=== PATIENT | female | born 1955 | race Caucasian/White ===

== ENCOUNTER → 2017-10-10 10:48 | Outpatient (CLI) | payer BC, SELFPAY ==
--- NOTE | 2017-10-10 10:53 | MM_ITS ---
MM Dig screening mamm BI w/CAD CAD Screening ORDERING PHYSICIAN : Feliz Carlisle MD PATIENT AGE: 62 years GENDER: Female COMPARISON: Previous mammogramsJanuary 2016, 2015, January 2015 and July 2014 right mammogram. June 2013. Also 2011 INDICATION: Routine screening. No hormones no new complaints noncontributory family history TECHNIQUE: Standard CC and MLO images were obtained. R2 CAD reviewed. FINDINGS: Moderate density breast with fibroglandular elements most evident towards the upper outer quadrant. Mild asymmetry pattern is similar to previous studies RIGHT BREAST : No new areas of significant concern. Small just over 5 mm x nodular densities again seen at the medial right breast similar to 2016 2015 studies and actually dates back to 2014. Only one or 2 mm larger since 2015-this relative stability supports benign entity and follow-up in one year adequate LEFT BREAST:. Stable architecture and appearance with no new findings. Follow-up in one year recommended IMPRESSION: No significant new findings. Region towards upper-outer quadrant of both right left breast are denser and slightly more nodular character but with no suspicious new findings. Fairly stable small areas of nodularity bilaterally.- For which Follow-up in not over one year would be recommended, emphasized and encouraged BI-RADS Category: 2 Benign Finding(s) RECOMMENDED FOLLOW-UP: 1YR - 1 YEAR FOLLOW-UP (A letter has been sent to the patient regarding results of the study.)
== END ==
PROVIDERS: Family Provider Family Medicine; PCP Family Medicine; Visit Provider Family Medicine
DX: Z12.31 Encounter for screening mammogram for malignant neoplasm of breast (principal)
CPT/HCPCS: 77067

== ENCOUNTER → 2018-01-17 12:49 | Outpatient (POV) | payer BC, SELFPAY | PROVIDERS: Family Provider Family Medicine; PCP Family Medicine | DX: Z00.00 Encounter for general adult medical examination without abnormal findings (principal) ==

== ENCOUNTER → 2018-02-07 15:00 | Outpatient (POV) | payer BC, SELFPAY | PROVIDERS: Family Provider Family Medicine; PCP Family Medicine | DX: Z00.00 Encounter for general adult medical examination without abnormal findings (principal) ==

== ENCOUNTER → 2018-10-12 13:34 | Outpatient (CLI) | payer MEDICARE, SELFPAY ==
--- NOTE | 2018-10-12 13:38 | MM_ITS ---
MM Dig screening mamm BI w/CAD CAD Screening COMPARISON: Digital mammograms with CAD 10/10/2017 and 08/15/2016 INDICATION: There is no personal or family history of breast cancer TECHNIQUE: Standard CC and MLO images were obtained. R2 CAD reviewed. FINDINGS: Scattered fibroglandular densities are seen in both breast primarily upper outer quadrants. There is minimal arterial calcification in each breast. There are couple of benign-appearing calcifications in each breast. There is no suspicious lesion and there are no suspicious microcalcifications. IMPRESSION: Fibrofatty parenchyma with no suspicious lesion seen BI-RADS Category: 2 Benign Finding(s) RECOMMENDED FOLLOW-UP: 1YR - 1 YEAR FOLLOW-UP (A letter has been sent to the patient regarding results of the study.)
== END ==
PROVIDERS: PCP Family Medicine; Referring Provider Family Medicine; Visit Provider Family Medicine
DX: Z12.31 Encounter for screening mammogram for malignant neoplasm of breast (principal)
CPT/HCPCS: 77067

== ENCOUNTER → 2019-07-29 08:15 | Outpatient (CLI) | payer MEDICARE, SELFPAY ==
--- NOTE | 2019-07-29 08:28 | US_ITS ---
PROCEDURE: US ABDOMEN LIMITED CLINICAL INDICATION: epigastic abdominal pain with nausea COMPARISON: No exams were available for comparison FINDINGS: PANCREAS: Unremarkable. No obvious mass or abnormal fluid collection. No ductal dilatation LIVER: No focal liver lesions demonstrated. Homogeneous echogenicity. No intrahepatic biliary ductal dilatation evident. There is appropriate direction of blood flow within a non dilated portal vein RIGHT KIDNEY: Unremarkable. Normal size and echogenicity. No hydronephrosis GALLBLADDER: No gallstones, gallbladder wall thickening, pericholecystic fluid, or biliary dilatation. IMPRESSION: Unremarkable limited abdominal ultrasound as detailed above disc Dictated by: Armani Joe MD 07/29/2019 15:19 Electronically signed by Armani Joe MD in [place] 07/29/2019 15:19
== END ==
PROVIDERS: PCP Family Medicine; Visit Provider Family Medicine
DX: R10.13 Epigastric pain (principal); R11.2 Nausea with vomiting, unspecified
CPT/HCPCS: 76705

== ENCOUNTER → 2019-08-02 08:15 | Outpatient (CLI) | payer MEDICARE, SELFPAY ==
--- NOTE | 2019-08-02 08:27 | CT_ITS ---
PROCEDURE: CT ABDOMEN PELVIS W CON CLINICAL INDICATION: EPIGASTRIC PAIN,CONSTIPATION,N/V Nausea, vomiting, abdominal discomfort with epigastric pain COMPARISON: US ABDOMEN LIMITED from 07/29/2019 TECHNIQUE: IV Contrast: 75ML OPTIRAY 350 Oral Contrast 450ml Redicat Axial images obtained with sagittal and coronal reformats. All CT scans at the facility use one or more dose reduction, viz: automated exposure control, ma/kV adjustment per patient size (including targeted exams where dose is matched to indication, i.e. head), or iterative reconstruction technique. FINDINGS: LOWER THORAX: No acute finding ABDOMEN & PELVIS: The liver, spleen, pancreas, adrenal glands, and kidneys show no acute finding. No intestinal obstruction or free air. No evidence of appendicitis or diverticulitis. No pelvic mass, abnormal fluid collection, or focal inflammatory change of the pelvis. No acute bony anomalies. There is a small umbilical hernia which contains fat. IMPRESSION: No acute abdominal or pelvic findings. Dictated by: Armani Joe MD 08/04/2019 08:27 Electronically signed by Armani Joe MD in [facility] 08/04/2019 08:28
== END ==
PROVIDERS: PCP Family Medicine; Visit Provider Family Medicine
DX: R10.13 Epigastric pain (principal); R11.2 Nausea with vomiting, unspecified; R74.8 Abnormal levels of other serum enzymes; K59.00 Constipation, unspecified
CPT/HCPCS: 74177; Q9967

== ENCOUNTER → 2020-02-18 11:13 | Outpatient (CLI) | payer MEDICARE, SELFPAY ==
--- NOTE | 2020-02-18 11:21 | XR_ITS ---
PROCEDURE: XR SACRUM COCCYX MIN 2V CLINICAL INDICATION: COCCYDYNIA Pain COMPARISON: CT ABDOMEN PELVIS W CON from 08/02/2019 FINDINGS: There is an angulation deformity at the sacrococcygeal junction with mild anterior angulation of the coccyx consistent with an old fracture. No bony destructive process evident. . IMPRESSION: Old fracture at the sacrococcygeal junction, no acute finding Dictated by: Armani Joe MD 02/19/2020 07:26 Electronically signed by Armani Joe MD in [facility] 02/19/2020 07:26
== END ==
PROVIDERS: PCP Family Medicine; Visit Provider Family Medicine
DX: M53.3 Sacrococcygeal disorders, not elsewhere classified (principal)
CPT/HCPCS: 72220

== ENCOUNTER → 2020-02-21 10:16 | Outpatient (CLI) | payer MEDICARE, SELFPAY ==
--- NOTE | 2020-02-21 10:18 | MM_ITS ---
PROCEDURE: MM DIG SCREENING MAMM BI W/CAD Digital Breast Tomosynthesis Included CLINICAL INDICATION: SCREENING There is no personal or family history of breast cancer. COMPARISON: MG [facility] DIG MAMM-SCREEN OLIVIA W/CAD from 08/15/2016 [facility] MM Dig screening mamm BI w/CAD from 10/10/2017 [facility] MM Dig screening mamm BI w/CAD from 10/12/2018 TECHNIQUE: Standard CC and MLO images and 3D Tomosynthesis was obtained. R2 CAD reviewed. FINDINGS: Scattered fibroglandular densities are seen in each breast. There are couple of benign-appearing calcifications left breast and a single benign-appearing calcification right breast. There is faint arterial calcification in each breast. There is no new or suspicious lesion in either breast and no suspicious microcalcifications. IMPRESSION: Fibrofatty parenchyma with no suspicious lesions seen BI-RAD Category: 2 Benign Finding(s) FOLLOW-UP: 1YR 1 Year Follow-up (A letter has been sent to the patient regarding results of the study.) Dictated Dr. Everett Scott MD 02/28/2020 09:42 Dr. Everett Torres MD in [place] 02/28/2020 09:42
== END ==
PROVIDERS: PCP Family Medicine; Visit Provider Family Medicine
DX: Z12.31 Encounter for screening mammogram for malignant neoplasm of breast (principal)
CPT/HCPCS: 77063; 77067

== ENCOUNTER → 2020-12-08 09:43 | Outpatient (POV) | payer MEDICARE, SELFPAY | PROVIDERS: Visit Provider Dermatology | DX: Z00.00 Encounter for general adult medical examination without abnormal findings (principal) ==

== ENCOUNTER → 2020-12-09 13:43 | Outpatient (CLI) | payer MEDICARE, SELFPAY | PROVIDERS: Visit Provider Nurse Practitioner | DX: T78.1XXA Other adverse food reactions, not elsewhere classified, initial encounter (principal) ==

== ENCOUNTER → 2020-12-10 11:11 | Outpatient (CLI) | payer MEDICARE, SELFPAY ==
[2020-12-15 04:15] LABS: F024-IgE Shrimp <0.10 kU/L (Class 0)
== END ==
PROVIDERS: Visit Provider Nurse Practitioner
DX: Z91.018 Allergy to other foods (principal)
CPT/HCPCS: 36415; 86003

== ENCOUNTER → 2021-03-10 10:53 | Outpatient (CLI) | payer MEDICARE, SELFPAY ==
--- NOTE | 2021-03-10 10:56 | MM_ITS ---
PROCEDURE: MM DIG SCREENING MAMM BI W/CAD Digital Breast Tomosynthesis Included CLINICAL INDICATION: SCREENING COMPARISON: [facility] MM Dig screening mamm BI w/CAD from 10/10/2017 [facility] MM Dig screening mamm BI w/CAD from 10/12/2018 MG MM DIG SCREENING MAMM BI W/CAD from 02/21/2020 TECHNIQUE: Standard CC and MLO images and 3D Tomosynthesis was obtained. R2 CAD reviewed. FINDINGS: There is average fibroglandular tissue. There are scattered benign-appearing calcifications. No suspicious appearing mass, malignant-appearing microcalcification, architectural distortion, or skin thickening. No significant change IMPRESSION: Benign findings. No change with no evidence of malignancy BI-RAD Category: 2 Benign Finding FOLLOW-UP: 1 YR 1 Year Follow-up (A letter has been sent to the patient regarding results of the study.) Dictated by: Armani Joe MD 03/16/2021 09:07 Armani Joe MD in [place] 03/16/2021 09:07
== END ==
PROVIDERS: PCP Family Medicine; Visit Provider Family Medicine
DX: Z12.31 Encounter for screening mammogram for malignant neoplasm of breast (principal)
CPT/HCPCS: 77063; 77067

== ENCOUNTER → 2021-06-28 08:43 | Outpatient (CLI) | payer MEDICARE, SELFPAY ==
--- NOTE | 2021-06-28 08:45 | XR_ITS ---
PROCEDURE: XR DEXA AXIAL SKELETON CLINICAL HISTORY: POST-MENOPAUSAL COMPARISON: No exams were available for comparison FINDINGS: The right hip BMD is 0.665 with a T-score of -1.7. The left hip BMD is 0.69 with a T-score of -1.4. The lumbar spine BMD is 0.965 with a T-score of -0.7. IMPRESSION: This patient is considered osteopenic according to the World Health Organization criteria. Bone density is between 10 and 25 percent below young normal. Fracture risk is moderate. Treatment is advised. Based on these results a follow-up exam is recommended in 2 year. Dictated by: Armani Joe MD 06/28/2021 14:14 Armani Joe MD in [place] 06/28/2021 14:14
== END ==
PROVIDERS: PCP Family Medicine; Visit Provider Family Medicine
DX: Z13.820 Encounter for screening for osteoporosis (principal); Z78.0 Asymptomatic menopausal state
CPT/HCPCS: 77080

== ENCOUNTER → 2021-12-28 13:16 | Outpatient (POV) | payer MEDICARE, SELFPAY | PROVIDERS: Visit Provider Dermatology | DX: Z00.00 Encounter for general adult medical examination without abnormal findings (principal) ==

== ENCOUNTER → 2022-03-08 08:01 | Outpatient (POV) | payer MEDICARE, SELFPAY | PROVIDERS: Visit Provider Dermatology | DX: Z00.00 Encounter for general adult medical examination without abnormal findings (principal) ==

== ENCOUNTER → 2022-04-08 10:07 | Outpatient (CLI) | payer MEDICARE, SELFPAY ==
--- NOTE | 2022-04-08 10:11 | MM_ITS ---
PROCEDURE INFORMATION: Exam: MG Bilateral Screening 3D Mammography Exam date and time: 04/08/2022 10:22 AM Age: 67 years old Clinical indication: Screening examination. No family history of breast cancer. TECHNIQUE: Imaging protocol: Bilateral Screening tomosynthesis and 2D mammography including computer-aided detection (CAD) when performed. COMPARISON: 1. MG MM DIG SCREENING MAMM BI W/CAD 03/10/2021 11:01 AM 2. MG MM DIG SCREENING MAMM BI W/CAD 02/21/2020 10:26 AM 3. [facility] MM Dig screening mamm BI w/CAD 10/12/2018 2:06 PM 4. MG [facility] MM Dig screening mamm BI w/CAD 10/10/2017 11:06 AM FINDINGS: MAMMOGRAPHY: Breast composition: There are scattered areas of fibroglandular density. Mass: Possible two 0.5 cm oval nodules in the right breast 12 o'clock middle 3rd, 6-7 cm from the nipple. Architectural distortion: None. Calcifications: No suspicious calcifications. Asymmetric density: None. Skin thickening: None. Axillary adenopathy: None. IMPRESSION: Patient to be recalled for right diagnostic mammography with spot compression in the CC and MLO and targeted right breast ultrasound for further evaluation of possible right breast masses. ASSESSMENT: BI-RADS Category 0: Incomplete- Need Additional Imaging Evaluation and/or Prior Mammograms for Comparison
== END ==
PROVIDERS: PCP Family Medicine; Visit Provider Family Medicine
DX: Z12.31 Encounter for screening mammogram for malignant neoplasm of breast (principal)
CPT/HCPCS: 77063; 77067

== ENCOUNTER → 2022-04-19 12:58 | Outpatient (CLI) | payer MEDICARE, SELFPAY ==
--- NOTE | 2022-04-19 13:01 | MM_ITS ---
PROCEDURE INFORMATION: Exam: US Right Breast, Complete MG Right Diagnostic Breast Tomosynthesis Exam date and time: 04/19/2022 12:57 PM Age: 67 years old Clinical indication: Recall on the basis of screening mammogram 04/08/2022 for further evaluation of 2 possible 0.5 cm nodules in the right breast 12 o'clock middle 3rd 6-7 cm from the nipple. TECHNIQUE: Imaging protocol: Complete ultrasound of all four quadrants of the Right breast and the retroareolar regions, including ultrasound of the axilla when performed. Right Diagnostic tomosynthesis and 2D mammography including computer-aided detection (CAD) when performed. Unilateral or bilateral exam. COMPARISON: 1. MG MM DIG SCREENING MAMM BI W/CAD 04/08/2022 10:22 AM 2. MG MM DIG SCREENING MAMM BI W/CAD 03/10/2021 11:01 AM 3. MG MM DIG SCREENING MAMM BI W/CAD 02/21/2020 10:26 AM 4. MG [facility] MM Dig screening mamm BI w/CAD 10/12/2018 2:06 PM FINDINGS: MAMMOGRAPHY: Spot compression demonstrates persistent 0.7 cm oval nodule and 0.3 oval nodule oval nodule. ULTRASOUND: Right sonography, all 4 quadrants, retroareolar and axilla, demonstrates oval hypoechoic masses, more likely more complicated cyst than solid masses, at 11 o'clock 6 cm from the nipple measuring 0.4 by 0.6 x 0.3 cm and at 12 o'clock 2 cm from the nipple measuring 0.5 x 0.3 by 0.4 cm - 11 o'clock nodule is best correlate to the larger mammographic finding. No suspicious mass demonstrated. Sonographically unremarkable right axillary lymph node. IMPRESSION: Probably benign masses, suggest six-month follow-up right diagnostic mammogram and targeted right sonography, unless otherwise clinically indicated. ASSESSMENT: BI-RADS Category 3: Probably benign
== END ==
PROVIDERS: PCP Family Medicine; Visit Provider Family Medicine
DX: R92.8 Other abnormal and inconclusive findings on diagnostic imaging of breast (principal)
CPT/HCPCS: 76641; 77061; 77065; G0279

== ENCOUNTER → 2022-10-26 13:50 | Outpatient (CLI) | payer MEDICARE, SELFPAY ==
--- NOTE | 2022-10-26 13:54 | US_ITS ---
PROCEDURE INFORMATION: Exam: US Right Breast, Complete Exam date and time: 10/26/2022 2:33 PM Age: 67 years old Clinical indication: Short-term radiographic follow-up for a right breast mass TECHNIQUE: Imaging protocol: Complete ultrasound of all four quadrants of the right breast and the retroareolar regions, including ultrasound of the axilla when performed. COMPARISON: US BREAST RT COMPLETE 04/19/2022 1:27 PM FINDINGS: Breast: Sonographic images of the right breast including the retroareolar region, all 4 quadrants and the axilla were obtained. Stable hypoechoic ovoid solid mass in the 11 o'clock axis 6 cm from the nipple measuring 0.6 x 0.2 x 0.3 cm in dimension. 0.6 cm right 11 o'clock periareolar cyst. No architectural distortion or acoustical shadowing. No skin thickening or axillary adenopathy. IMPRESSION: Stable probably benign right 11 o'clock axis mass compared to prior sonogram dated 04/19/2022. A six-month follow-up targeted right breast ultrasound is recommended for continued close surveillance ASSESSMENT: BI-RADS Category 3: Probably benign
== END ==
PROVIDERS: PCP Family Medicine; Visit Provider Family Medicine
DX: R92.8 Other abnormal and inconclusive findings on diagnostic imaging of breast (principal)
CPT/HCPCS: 76641

== ENCOUNTER → 2023-04-10 12:35 | Outpatient (CLI) | payer MEDICARE, SELFPAY ==
--- NOTE | 2023-04-10 12:38 | US_ITS ---
PROCEDURE INFORMATION: Exam: US Right Breast, Complete Exam date and time: 04/10/2023 1:15 PM Age: 68 years old Clinical indication: Short-term sonographic follow-up for right 11 o'clock axis mass 6 cm from the nipple TECHNIQUE: Imaging protocol: Complete ultrasound of all four quadrants of the right breast and the retroareolar regions, including ultrasound of the axilla when performed. COMPARISON: US BREAST RT COMPLETE 10/26/2022 2:33 PM FINDINGS: Breast: Sonographic images of the right upper outer quadrant no longer demonstrates the 0.6 cm hypoechoic mass 6 cm from the nipple. Again identified is an incidental 11 o'clock axis 0.7 cm cyst 1 cm from the nipple. No masses in the remainder of the right breast. Cursors were placed over normal fibrofatty tissue structures in the axilla. No axillary adenopathy. IMPRESSION: Resolution of a previously noted hypoechoic mass in the 11 o'clock axis 6 cm from the nipple.Annual bilateral mammographic screening is recommended unless otherwise clinically indicated. ASSESSMENT: BI-RADS Category 2: Benign
== END ==
PROVIDERS: PCP Family Medicine; Visit Provider Family Medicine
DX: R92.8 Other abnormal and inconclusive findings on diagnostic imaging of breast (principal)
CPT/HCPCS: 76641

== ENCOUNTER → 2023-07-13 09:10 | Outpatient (CLI) | payer MEDICARE, SELFPAY ==
--- NOTE | 2023-07-13 09:16 | XR_ITS ---
FINAL REPORT CLINICAL HISTORY: OSTEO SCREENING COMPARISON: 06/28/2021 FINDINGS: Using L1-4, the bone mineral density of the spine is 0.986 g/cm2, corresponding to T-score of -0.6, within normal limits. Previously 0.965 g/cm? with a T-score of -0.7. Using the left hip, the bone mineral density of the femoral neck is 0.647 g/cm2, corresponding to a T-score of -1.8, consistent with osteopenia. Previously 0.699 g/cm? with T-score of -1.4. Using the right hip, the bone mineral density of the femoral neck is 0.647 g/cm2, corresponding to a T-score of -1.8, consistent with osteopenia. Previously 0.665 g/cm? with T-score of -1.7. FRAX 10 year fracture risk is 2.8% for a hip fracture and 15% for a major osteoporotic fracture. NOTE: T-score: Standard deviation compared with peak bone mass of young adult mean. *Following the recommendations of the International Society of Bone densitometry, classification of hip BMD is based on the lower of two T-scores; total hip or femoral neck. IMPRESSION: Diminished bone mineral density consistent with osteopenia. Reviewed, Interpreted and Dictated by Jamison Fatima MD Transcribed by Lizbeth Martinez Authenticated and [facility]
== END ==
LOC: RAD 09:10
PROVIDERS: PCP Family Medicine; Visit Provider Family Medicine
DX: Z13.820 Encounter for screening for osteoporosis; Z78.0 Asymptomatic menopausal state
CPT/HCPCS: 77080

== ENCOUNTER 2024-06-11 13:00 | Outpatient (POV) | payer MEDICARE, SELFPAY | END 2024-06-11 23:59 | disposition home or self-care (01) | LOC: SC 06-12 06:54 | PROVIDERS: Visit Provider Dermatology | DX: Z00.00 Encounter for general adult medical examination without abnormal findings (principal) ==

== ENCOUNTER 2024-08-15 09:44 | Outpatient (CLI) | payer MEDICARE, SELFPAY ==
--- NOTE | 2024-08-15 09:49 | MM_ITS ---
PROCEDURE INFORMATION: Exam: MG Bilateral Screening 3D Mammography Exam date and time: 08/15/2024 9:45 AM Age: 69 years old Clinical indication: Screening examination TECHNIQUE: Imaging protocol: Bilateral Screening tomosynthesis and 2D mammography including computer-aided detection (CAD) when performed. COMPARISON: 1. MG MM DIG MAMM DX UNILAT RT CAD 04/19/2022 12:57 PM 2. MG MM DIG SCREENING MAMM BI W/CAD 04/08/2022 10:22 AM FINDINGS: MAMMOGRAPHY: Breast composition: There are scattered areas of fibroglandular density. Mass: None. Architectural distortion: None. Calcifications: No suspicious calcifications. Asymmetric density: None. Skin thickening: None. Axillary adenopathy: None. IMPRESSION: No mammographic evidence of malignancy. Annual screening is recommended unless otherwise clinically indicated. ASSESSMENT: BI-RADS Category 1: Negative.
== END 2024-08-15 23:59 | disposition home or self-care (01) ==
LOC: RAD 09:47
PROVIDERS: PCP Family Medicine; Visit Provider Family Medicine
DX: Z12.31 Encounter for screening mammogram for malignant neoplasm of breast (principal)
CPT/HCPCS: 77063; 77067

== ENCOUNTER 2024-11-22 14:10 | Outpatient (CLI) | payer MEDICARE, SELFPAY ==
--- OUTSIDE RECORDS SUMMARY | 2024-11-22 14:12 | XMS_ITS ---
Author Organization Unknown [facility] Start Date Provider Encounter for Check-up [id number] [facility]
--- NOTE | 2024-11-22 14:15 | CA_ITS ---
APPROVED REPORT EXAM: Comprehensive 2D, Doppler, and color-flow Echocardiogram Rn Medical Inpatient Services: Sweetie Birch RDCS Ht: 5 ft 3 in Wt: 110lbs BSA: 1.50 BP: 110/70 mmHg Indications: Dyspnea, edema M-Mode Dimensions RVDd 1.19 cm (0.9-2.6) LA Diam 1.88 cm (1.9-4.0) LVDd 3.90 cm (3.5-5.7) LVDs 2.56 cm (3.5-5.7) IVSd 0.72 cm (0.6-1.1) PWd 0.84 cm (0.6-1.1) EF (Teich) 64.00% FS 34.40% EDV (Teich) 65.90 mL TAPSE 1.95 (<1.7) ESV (Teich) 23.70 mL LV Diastology E Decel Time 223 (160-240 msec) E/A Ratio 0.8 Mitral Valve MV E Max Jerrod. 64.0 (40-130 cm/s) MV A Velocity 79.0 (40-130 cm/s) E/A Ratio 0.81 MV PHT 65.0 ms Left Ventricle The left ventricle is normal size. The left ventricular systolic function is low normal. There is normal left ventricular wall thickness. The septum is asynchronous. The left ventricular diastolic function is normal. LVEF is 50%. Right Ventricle The right ventricle is normal size. The right ventricular systolic function is normal. Atria The left atrium size is normal. The right atrium size is normal. There is no Doppler evidence of interatrial shunt. Aortic Valve The aortic valve is mildly thickened. There is no aortic valvular stenosis. No aortic regurgitation is present. Mitral Valve The mitral valve is normal in structure. No evidence of mitral valve stenosis. Trace mitral regurgitation. Tricuspid Valve Tricuspid valve is grossly normal in structure and function. Trace tricuspid regurgitation. There is insufficient TR jet to estimate RVSP. Pulmonic Valve The pulmonary valve is normal in structure. Trace pulmonic regurgitation. Great Vessels The aortic root is normal in size. IVC is normal in size and collapses >50% with inspiration. Pericardium There is no pericardial effusion. Other Information Study Quality: Fair Conclusion Low normal LV systolic function (LVEF 50%). Asynchronous septum. No significant valvular stenosis or regurgitation. Electronically signed by : Nabila Gonzalez MD 12/01/2024 21:37:58
== END 2024-11-22 23:59 | disposition home or self-care (01) ==
LOC: RT 14:11
PROVIDERS: PCP Family Medicine; Visit Provider Family Medicine
DX: I50.20 Unspecified systolic (congestive) heart failure (principal); R60.0 Localized edema; R06.02 Shortness of breath; R53.83 Other fatigue
CPT/HCPCS: 93306

== ENCOUNTER 2025-06-02 13:10 | Outpatient (CLI) | payer MEDICARE, SELFPAY ==
--- NOTE | 2025-06-02 13:13 | XR_ITS ---
FINAL REPORT CLINICAL HISTORY: SCREENING COMPARISON: 07/13/2023 FINDINGS: Using L1-4, the bone mineral density of the spine is 0.944 g/cm2, corresponding to T-score of -0.9. The bone mineral density change versus baseline is -2.2%. Using the left hip, the bone mineral density of the femoral neck is 0.643 g/cm2, corresponding to a T-score of -1.9. The bone mineral density change versus baseline is -8.0% Using the right hip, the bone mineral density of the femoral neck is 0.650 g/cm2, corresponding to a T-score of -1.8. The bone mineral density change versus baseline is -2.2%. NOTE: T-score: Standard deviation compared with peak bone mass of young adult mean. *Following the recommendations of the International Society of Bone densitometry, classification of hip BMD is based on the lower of two T-scores; total hip or femoral neck. IMPRESSION: Diminished bone mineral density of the bilateral hips consistent with osteopenia. Normal bone mineral density of the lumbar spine. Reviewed, Interpreted and Dictated by Norberto Lao MD Transcribed by Jessica Cheung Authenticated and [facility]
--- OUTSIDE RECORDS SUMMARY | 2025-06-02 13:14 | XMS_ITS | Clinical Summary ---
Author Organization [facility] Address [address] [place] [address] Care Team Providers Care Instructor Of Spanish Name Role Phone Feliz Carlisle MD Primary Care Provider [phone] Allergies No known active allergies Medications hydrochlorothiaz micki (MICROZIDE) 12.5 MG capsule 0 01/30/2016 Act aline lisinopril (PRINIVIL,ZESTRI L) 20 MG tablet 0 01/30/2016 Act aline REPATHA SURECLICK 140 MG/ML solution auto-injector 01/04/2016 Activ e aspirin 81 MG EC tablet Take 81 mg by mouth daily. Active Flaxseed misc Active Active Problems Problem Noted Date Diagnosed Date Sucrase-isomaltase deficiency Family History Medical History Relation Name Comments Heart attack Father Cancer Mother LUNG Relation Name Status Comments Father Mother Social History Tobacco Use Types Packs/Day Years Used Date Smoking Tobacco: Never Alcohol Use Standard Drinks/Week Comments No 0 (1 standard drink = 0.6 oz pur e alcohol) Abuse Screen Answer Date Recorded Unsafe at Home or Work/School Not on file Feels Threatened by Someone? Not on file 03/2023 Does Anyone Keep You from Co ntacting Others or Doint Things Outside the Home? Not on file 05/01/2023 Physical Sign of Abuse Present Not on file 1 Housing Stability Answer Date Recorded Current Living Arrangements Not on file 03/2023 Potentially Unsafe Housing Conditions Not on alyson e 05/01/2023 Family and Community Support Answer Graeme e Recorded Help with Day-to-Day Activities Not on file 05/01/2023 Lonely or Isolated Not on file 05/01/2023 Employment Answer Date Recorded Do you want help finding or keeping work or a dunia b? Not on file 05/01/2023 Disabilities Answer Date Recorded Concentrating, Remembering, or Making Decisions Difficulty Not on file 05/01/2023 Doing Errands Independently Difficulty Not on fi le 05/01/2023 Education Answer Date Recorded Help with school or training? Not on file Preferred Language Not on file 05/01/2023 Comments Unknown Sex and Gender Information Value Date Recorded Sex Assigned at Not on file Legal Sex Female 4:05 PM EDT Gender Identity Not on file Sexual Orientation Not on file Last Filed Vital Signs Vital Sign Reading Time Taken Comments Blood Pressure 130/80 02/29/2016 3:27 PM EDT Pulse 92 02/29/2016 3:27 PM EDT Temperature 36.8 C (98.2 F) 02/29/2016 3:27 PM EDT Respiratory Rate - - Oxygen Saturation - - Inhaled Oxygen Concentration - - Weight 57.2 kg (126 lb) 02/29/2016 3:27 PM EDT Height 157.5 cm (5' 2 ) 09/19/2019 2:52 PM EST Body Mass Index 23.05 02/29/2016 3:27 PM EDT Plan of Treatment Health Maintenance Due Date Last Done Comments ANNUAL PHYSICAL 1955 DXA SCAN 1955 HEPATITIS C SCREENING 1953 TDAP/TD VACCINES (1 - Tdap) 1972 MAMMOGRAM 1993 COLOGUARD 1998 COLON CANCER SCREENING 5 YEA R SIGMOIDOSCOPY 1998 COLONOSCOPY 1998 [address] CANCER SCREENING 1998 CT COLONOGRAPHY 1998 FECAL OCCULT BLOOD TEST 1998 FIT Testing (1 year) 1998 ZOSTER VACCINE (1 of 2) 2003 Pneumococcal Vaccine 50+ (2 of 2 - PCV) 05/22/2019 1 INFLUENZA VACCINE 02/21/2025 04/26/2019, 05/21/2018 COVID-19 Vaccine ( - season) 2025 Insurance [employer] Care Teams Instructor Of Spanish Relationship Specialty Start Date End Date Feliz Carlisle MD [address] [facility] [address] [place] [id number] PCP - General Family Medicine 02/16/16
== END 2025-06-02 23:59 | disposition home or self-care (01) ==
LOC: RAD 13:11
PROVIDERS: PCP Family Medicine; Visit Provider Family Medicine
DX: M85.851 Other specified disorders of bone density and structure, right thigh (principal); M85.852 Other specified disorders of bone density and structure, left thigh; Z13.820 Encounter for screening for osteoporosis
CPT/HCPCS: 77080